=== PATIENT | male | born 1995 | race Caucasian/White ===

== ENCOUNTER 2020-01-17 11:23 | Emergency (ER) | payer BC, SELFPAY ==
[2020-01-17 12:05] VITALS: BP 113/74; PULSE 88; RESP 20; TEMP 36.8; O2SAT 98; BMI 25.1
--- NOTE | 2020-01-17 12:32 | HMH.EDUTC ---
[facility] [place] Clinical Impression: Strep throat, Encounter for laboratory testing for COVID-19 virus Disposition: Home, Self-Care Condition on Discharge: Good Instructions: Preventing the Spread of Coronavirus Discharge Instructions, Cefdinir, Guaifenesin, Fluticasone Nasal [place] Additional Instructions: *Monitor Temp, Over the counter Motrin or Tylenol as directed/as needed Tylenol every 4 hours and Motrin every 6 hours (as long as your family doctor has told you that you can take it) for fever or pain. and straight to ER if unable to lower temp less than 101.0 after medication given *Warm salt water gargles may help to soothe the throat *Throat Lozenges *Warm fluids like tea with honey may help to soothe the throat *Sleep elevated *Humidifier/Vaporizer *Flonase 2 sprays in each nostril daily but be aware that it may take 2-3 days before you notice improvement *If you did not take Penicillin shot or was unable to, start taking antibiotic immediately and make sure that you take it for the FULL length of time although you should start to feel better in 24-48 hours *change toothbrush and toothpaste 24-48 hours after starting to take antibiotics so you do not reinfect yourself Monitor Temp. Tylenol and/or Ibuprofen as needed. ER if fever is no less than 101 despite alternating Tylenol and Ibuprofen * Encourage fluids, water, Gatorade, powerade, pedialyte if /toddler/or child *Cold fluids, popsicles and ice cream may feel good on his throat Follow up IMMEDIATELY for new or worsening symptoms or no Noticeable improvement over the next 48-72 hours. 911 for difficulty breathing or swallowing You was tested for today for COVID19 your test result should be back later this evening, you may call back later this evening to see if your test results are back and the result [phone] You was given a handout with instructions for Self Quarantine and Self isolation for while you wait on test results and what to do if they are positive Prescriptions: Fluticasone Propionate [Flonase 50mcg nasal spray 16gm] 1 spr NS DAILY #1 bottle Transmission Status: Pending to [facility] guaiFENesin [Mucinex 600mg tablet] 600 mg PO BID #[id number] Transmission Status: [facility] Cefdinir [Omnicef 300mg Capsule] 300 mg PO BID #20 cap Transmission Status: Pending to [facility] Referrals: PCP,No [Primary Care Provider] - As needed Forms: Work/School Release Time of Disposition: 12:39 Medical Decision Making - Ramses Inquiry Pt receiving controlled substance: No Ramses was queried for this patient: No Vital Signs: 01/17/20 12:05 Temperature 98.3 F Temperature Source Oral Pulse Rate [Right Brachial] 88 Respiratory Rate 20 Blood Pressure [Right Arm] 113/74 Blood Pressure Mean [Right Arm] 87 Blood Pressure Source [Right Arm] Automatic Cuff Blood Pressure Position [Right Arm] Sitting 02 Sat by Pulse Oximetry 98 Oxygen Delivery Method Room Air [facility] [place] - General Stated complaint: sore throat,headache,fever Time Seen by Provider: 01/17/20 12:32 Mode of Arrival: Ambulatory Source of Information: Patient Limitations: No Limitations Description of Symptoms (Recalled from Triage Doc. by RN): PATIENT C/O SORE THROAT, COUGH, CHEST DISCOMFORT/CONGESTION, AND HEADACHE SINCE FRIDAY. REQUESTING A COVID TEST HEENT Symptoms (Recalled from RN notes): Yes Resp Symptoms (Recalled from RN notes): Yes Skin Symptoms (Recalled from RN notes): No MS Symptoms (Recalled from RN notes): No Functional Status (Recalled from RN notes): WNL - History of Present Illness Provider Complaint: Patient state that he has been having sore throat, cough, sinus congestion and feeling like it is trying to move into his chest States that it has continued to get worse over the last few days States that he was with his platoon in [place] and they told him he had to go get checked so he come home - Related Data Home Medicatio
[2020-01-17 12:55] VITALS: BP 113/74; PULSE 88; RESP 20; TEMP 36.8; O2SAT 98
[2020-01-17 12:58] LABS: UTC Strep Screen (Rapid) Positive (Negative)
== END 2020-01-17 13:00 | disposition home or self-care (01) ==
PROVIDERS: Emergency Provider Nurse Practitioner
DX: Z20.828 Contact with and (suspected) exposure to other viral communicable diseases (principal); J02.0 Streptococcal pharyngitis; F41.9 Anxiety disorder, unspecified; Z79.899 Other long term (current) drug therapy
CPT/HCPCS: 87880; 99202; U0003